=== PATIENT | male | born 1990 | race Two or more races ===

== ENCOUNTER 2021-03-06 02:23 | Emergency (ER) | payer OTHER ==
[~2021-03-06] VITALS: Ht 167.6 cm; Wt 69.4 kg
[2021-03-06] MEDS ORDERED: [UNRECOGNIZED DRUG - OTHER] (02:45)
== END 2021-03-06 14:33 | disposition home or self-care (01) ==
LOC: ER 02:23
DX: M79.662 Pain in left lower leg (principal); M79.661 Pain in right lower leg